=== PATIENT | female | born 1930 | race Caucasian/White ===

== ENCOUNTER 2018-03-28 05:06 | Inpatient (IN) | payer MEDICARE, BC ==
[~2018-03-28] VITALS: Ht 157.5 cm; Wt 68.2 kg
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
--- NOTE | ~2018-03-28 | PN ---
PATIENT:TAVARES ARRIOLA MEDICAL RECORD: [id number] LOCATION:[facility] ADMISSION DATE: 03/28/18 PROGRESS NOTE DATE OF SERVICE: 03/30/2018 SUBJECTIVE: The patient's case was discussed with staff. She has no new complaint. OBJECTIVE: The patient is disorganized and at times delusional. ASSESSMENT: No change in diagnoses. PLAN: The patient is going to receive Trilafon at a dose of 2 mg at bedtime. Trilafon is going to be used to treat her underlying thought disorganization. She will be monitored for clinical changes associated with its use. TRANSINT:[id number] Voice Confirmation ID: [id number] DOCUMENT ID: [id number] RENE PRUITT MD at 1255 CC: [id number] DICTATION DATE: 03/30/18 1255 NIGHT WAREHOUSE MANAGER: 03/30/18 1411 ADM IN [place] [id number] [place] [address]
--- NOTE | ~2018-03-28 | PN ---
PATIENT:TAVARES ARRIOLA MEDICAL RECORD: [id number] LOCATION:[facility] ADMISSION DATE: 03/28/18 PROGRESS NOTE DATE OF SERVICE: 03/31/2018 SUBJECTIVE: The patient's case was discussed with staff. She has no new complaint. OBJECTIVE: The patient denies intent to harm herself or others. She is tolerating her medications reasonably well, but unfortunately did not sleep at all last night. She continues to have these delusions about her having an affair of some sort. She will be treated with a low dose of trazodone to assist with sleep consolidation. TRANSINT:[id number] Voice Confirmation ID: [id number] DOCUMENT ID: [id number] RENE PRUITT MD at 0846 CC: [id number] DICTATION DATE: 03/31/18 1341 SCHEDULER: 03/31/18 1741 ADM IN [facility] [address] [place] [address]
--- NOTE | ~2018-03-28 | PN ---
PATIENT:TAVARES ARRIOLA MEDICAL RECORD: [id number] LOCATION:[facility] ADMISSION DATE: 03/28/18 PROGRESS NOTE DATE OF SERVICE: 04/01/2018 SUBJECTIVE: The patient's case was discussed with staff. She has no new complaint. OBJECTIVE: The patient is only eating about half of what is presented to her. In the long run, this will be a problem, but going to monitor it for now. She is sleeping adequately. She has no current thoughts of self-harm or harming others and has not been aggressive. ASSESSMENT: No change in diagnoses. PLAN: Brief supportive and educational interventions were made. Long-term prognosis is guarded. TRANSINT:[id number] Voice Confirmation ID: [id number] DOCUMENT ID: [id number] RENE PRUITT MD at 1130 CC: [id number] DICTATION DATE: 04/01/18 1013 ENGINE REPAIRER SERVICE: 04/01/18 1214 ADM IN [place] [id number] [place] [address]
--- NOTE | ~2018-03-28 | PN ---
PATIENT:TAVARES ARRIOLA MEDICAL RECORD: [id number] LOCATION:[facility] ADMISSION DATE: 03/28/18 PROGRESS NOTE DATE OF SERVICE: 04/02/2018 SUBJECTIVE: The patient's case was discussed with staff. She has no new complaint. OBJECTIVE: The patient is in good behavioral control and has had no agitated behavior. ASSESSMENT: No change in diagnoses. PLAN: The patient will be discharged to home with her daughter who is here from [place]. The daughter is going to take her and the back to [place]. I think it is reasonably safe for her to be sent home with the daughter being present in the home since the patient is going to have some supervision there. Daughter also somewhat minimizes the situation, saying that this was the only time her mother had become agitated in this way and she is not distressed about having her at home. Again, the plan is for the daughter to take both her mother and father back home to [place]. Followup will be arranged by the daughter in [place]. TRANSINT:[id number] Voice Confirmation ID: [id number] DOCUMENT ID: [id number] RENE PRUITT MD at 0941 CC: [id number] DICTATION DATE: 04/02/18 1145 DISPATCHER ELECTRIC POWER: 04/02/18 1549 DIS IN 04/02/18 [place] [id number] [place] [address]
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
[2018-03-28] MEDS ORDERED: MULTI-DAY VITAM1 TAB PO (05:19)
[2018-03-28 06:13] LABS: BASOPHILS 0.5 % (0-2); EOSINOPHILS 0.6 % (0-7); HEMATOCRIT 37.7 % (36.0-48.0); HEMOGLOBIN 12.9 g/dL (12-16); IMMATURE GRANULOCYTES 0.5 % (0-5); LYMPHOCYTES 14.9 % (15-50); MCH 30.2 pg (26.0-34.0); MCHC 34.2 g/dL (31.0-37.0); MCV 88.3 fL (80.0-100.0); MEAN PLATELET VOLUME 11.1 fL (7.4-10.4); MONOCYTES 9.6 % (2-11); NEUTROPHILS 73.9 % (40-80); PLATELET COUNT 252 10x3/uL (130-400); RBC 4.27 10x6/uL (4.00-5.40); RDW 15.1 % (11.5-14.5); WBC 8.3 10x3/uL (4.8-10.8)
[2018-03-28 06:21] LABS: ALBUMIN 3.5 g/dL (3.4-5.0); ANION GAP 16.2 mmol/L (8-16); BILIRUBIN - TOTAL 0.44 mg/dL (0.2-1.3); CARBON DIOXIDE 24.7 mmol/L (21.0-32.0); CREATININE - SERUM 0.8 mg/dL (0.6-1.3); POTASSIUM - SERUM 3.9 mmol/L (3.5-5.1); PROTEIN - SERUM 6.6 g/dL (6.4-8.2)
[2018-03-28 06:30] LABS: THYROID STIMULATING HORMONE 2.52 uIU/mL (0.36-3.74)
[2018-03-28 06:38] LABS: UDS - AMPHET NEGATIVE QUAL (NEGATIVE); UDS - BARB NEGATIVE QUAL (NEGATIVE); UDS - BENZO NEGATIVE QUAL (NEGATIVE); UDS - COCAINE NEGATIVE QUAL (NEGATIVE); UDS - OPIATE NEGATIVE QUAL (NEGATIVE); UDS - PCP NEGATIVE QUAL (NEGATIVE); UDS - THC NEGATIVE QUAL (NEGATIVE)
[2018-03-28 06:51] LABS: APPEARANCE HAZY (CLEAR); BILIRUBIN NEGATIVE (NEGATIVE); COLOR YELLOW (YELLOW); GLUCOSE NEGATIVE (NEGATIVE); KETONE NEGATIVE (NEGATIVE); NITRITE NEGATIVE (NEGATIVE); PROTEIN 3+ mg/dL (NEGATIVE); SPECIFIC GRAVITY 1.015 (1.005-1.020); UROBILINOGEN NORMAL (NORMAL)
[2018-03-28 06:52] LABS: BACTERIA MODERATE /hpf (NONE SEEN); EPITHELIAL CELLS 0-5 /hpf (0-5); GRANULAR CAST RARE /lpf (NONE SEEN); HYALINE CAST RARE /lpf (NONE SEEN); MUCUS <1+ /lpf (NONE SEEN); RED CELLS - URINE OCC /hpf (0-5); WHITE CELLS - URINE RARE /hpf (0-5)
[2018-03-28 07:20] VITALS: BP 146/66
[2018-03-28 08:00] VITALS: BP 132/74
[2018-03-28 10:43] LABS: LDL-HDL RATIO 0.9 ratio (1.5-3.5); THYROID STIMULATING HORMONE 2.39 uIU/mL (0.36-3.74)
[2018-03-28] MEDS ORDERED: DONEPEZIL HCL10 MG PO (14:43)
[2018-03-28 14:47] VITALS: BP 132/74; BMI 27.7
[2018-03-28 19:45] VITALS: BP 166/79
[2018-03-29 07:30] LABS: RAPID PLASMA REAGIN Non Reactive (Non Reactive)
[2018-03-29 08:20] LABS: FOLATE (FOLIC ACID) - SERUM >20.0 ng/mL (>3.0); VITAMIN D 25 HYDROXY 42.6 ng/mL (30.0-100.0)
[2018-03-29 10:05] VITALS: BMI 27.6
[2018-03-29 10:22] VITALS: BP 147/68
[2018-03-29 19:41] VITALS: BP 187/82
[2018-03-30 17:02] VITALS: BP 173/93
[2018-03-30 20:00] VITALS: BP 185/86
[2018-03-31 09:48] VITALS: BP 130/65
[2018-03-31 16:24] VITALS: Ht 157.5 cm; Wt 68.2 kg
[2018-03-31 19:52] VITALS: BP 131/74
[2018-04-01 09:51] VITALS: BP 114/63
[2018-04-01 10:10] VITALS: BP 114/63
[2018-04-01 19:00] VITALS: BP 122/76
[2018-04-02 07:00] VITALS: BP 161/72
[2018-04-02] MEDS ORDERED: Aricept PO (11:44)
[2018-04-02] MEDS ORDERED: DESERYL50 M2 PO (11:45)
== END 2018-04-02 15:45 | disposition home or self-care (01) | DRG 57 ==
LOC: D.ER 05:06 → D.PSYCH 08:26
PROVIDERS: Family Medicine; Psychiatry & Neurology Psychiatry
DX: G30.1 Alzheimer's disease with late onset (principal); F02.81 Dementia in other diseases classified elsewhere, unspecified severity, with behavioral disturbance; E78.5 Hyperlipidemia, unspecified; R59.1 Generalized enlarged lymph nodes; M19.90 Unspecified osteoarthritis, unspecified site; R80.9 Proteinuria, unspecified; G47.00 Insomnia, unspecified